=== PATIENT | female | born 1950 | race American Indian/Alaskan Native ===

== ENCOUNTER 2016-09-04 11:46 | Emergency (ER) | payer BC ==
[2016-09-04 12:02] LABS: Basophils % (Auto) 0.4 % (0.0-1.8); Eosinophils % (Auto) 0.4 % (0.0-4.3); Hematocrit 45.7 % (30.3-42.9); Hemoglobin 15.8 gm/dl (10.1-14.3); Mean Corpuscular HGB Conc 35 % (30-34); Mean Corpuscular Hemoglobin 30 pg (28-32); Mean Corpuscular Volume 86 fl (79-97); Platelet Count 235 K/mm3 (140-440); Red Blood Count 5.33 M/mm3 (3.65-5.03); Red Cell Distribution Width 12.4 % (13.2-15.2); White Blood Count 7.3 K/mm3 (4.5-11.0)
[2016-09-04 12:08] LABS: INR 0.96 (0.87-1.13)
--- NOTE | 2016-09-04 12:08 | Cat Scan Report ---
CT HEAD WITHOUT CONTRAST: HISTORY: CVA. No comparison. There is no evidence for hemorrhage, mass, chronic infarct or extra-axial fluid collection. No hydrocephalus. There is a questionable 2 x 4 cm area of diminished attenuation in the right basal ganglia region. This appears to involve the subinsular region as well as the head of the caudate nucleus. The remainder of the brain parenchyma has normal attenuation. The posterior fossa and contents are within normal limits. Moderate fluid or mucosal thickening in the ethmoid and visualized maxillary sinuses is noted. IMPRESSION: No evidence for hemorrhage. Questionable, subtle area of diminished attenuation in the right basal ganglia region. Please correlate with the patient's clinical presentation. These findings were discussed with Dr. Barber in the emergency department at 1201 hrs.
[2016-09-04] MEDS ORDERED: CARDENE DRIP 40 MG/200 ML 200 ML ONE (12:10)
[2016-09-04 12:13] LABS: Anion Gap 19 mmol/L; Blood Urea Nitrogen 12 mg/dL (7-17); Calcium 9.5 mg/dL (8.4-10.2); Carbon Dioxide 25 mmol/L (22-30); Chloride 95.4 mmol/L (98-107); Glucose 285 mg/dL (65-100); Potassium 3.6 mmol/L (3.6-5.0); Sodium 136 mmol/L (137-145)
--- NOTE | 2016-09-04 12:21 | Emergency Department Report ---
ED General Adult HPI - General Stated complaint: POSS CVA Time Seen by Provider: 09/04/16 11:57 Source: patient, family, EMS Mode of arrival: Stretcher Limitations: No Limitations - Related Data Allergies Allergy/AdvReac Type Severity Reaction Status Date / Time No Known Allergies Allergy Verified 09/04/16 11:48 ED Review of Systems ROS: Stated complaint: POSS CVA Other details as noted in HPI ED Past Medical Hx - Past Medical History Previous Medical History?: Yes Hx Hypertension: Yes Hx Diabetes: Yes - Surgical History Past Surgical History?: Yes Additional Surgical History: ectopic - Social History Smoking Status: Never Smoker Substance Use Type: None ED Physical Exam - General Limitations: No Limitations ED Course Vital Signs 09/04/16 12:04 Temperature 97.5 F L Pulse Rate 91 H Blood Pressure 231/95 O2 Sat by Pulse 100 Oximetry ED Medical Decision Making - Lab Data Result diagrams: 09/04/16 11:50 09/04/16 11:50 Critical care attestation.: If time is entered above; I have spent that time in minutes in the direct care of this critically ill patient, excluding procedure time. ED Disposition Condition: Stable
[2016-09-04] MEDS ORDERED: BABY ASPIRIN PO ONE (12:22)
[2016-09-04 12:45] LABS: Alanine Aminotransferase 10 units/L (7-56); Albumin/Globulin Ratio 0.8 %; Alkaline Phosphatase 109 units/L (35-129); Bilirubin,Total 0.5 mg/dL (0.1-1.2); Total Protein 8.8 g/dL (6.3-8.2)
--- NOTE | 2016-09-04 12:48 | XRay Report ---
AP CHEST: HISTORY: Hypertension AP view of the chest demonstrates a normal mediastinal and cardiac contour with clear lungs and normal bony and soft tissue structures. IMPRESSION: Unremarkable AP chest.
[2016-09-04 12:49] LABS: Bilirubin,Direct < 0.2 mg/dL (0-0.2)
--- NOTE | 2016-09-04 12:57 | Emergency Department Report ---
ED Neuro Deficit HPI - General Chief Complaint: Neuro Symptoms/Deficit Stated Complaint: POSS CVA Time Seen by Provider: 09/04/16 11:57 Source: patient, family, EMS Mode of arrival: Stretcher Limitations: No Limitations - History of Present Illness Initial Comments: The patient is brought to this facility as a "code stroke". Paramedics state that her last known well time was 11 PM last night. This is verified with the family. The family states that at 11 AM this morning they found that the patient was unable to get out of bed. They called EMS. The patient herself has no awareness of any weakness numbness facial droop or difficulty speaking. Paramedics did have a positive Bacliff score with a question of left facial droop and left arm drip. The patient's speech was normal on arrival. She did appear to have slight facial asymmetry in the hallway but not obvious full paresis. She presented with a field a curbside exam her drift was not really obvious. Blood pressure of about 250 systolic from EMS. She was sent directly for an immediate CT of her head. The patient herself stated that she did not pass out. She stated that she went to the floor because both her legs were weak. She stated that she had difficulty getting up because of generalized weakness. She denied any left sided weakness. She also denied any numbness at all. She specifically denied any paresthesias or facial change of any sort. She was completely coherent on arrival. She was completely unaware of any sort of neurological deficit and thus no information could be obtained concerning time of onset. I spoke with Dr. Rudolph the radiologist who read her CT immediately. He stated that she may have a possible right basal ganglion stroke that is already appearing as a hypodensity. He stated the finding is subtle and he couldn't confirmed. -: unknown Location: left face, left arm Presenting Symptoms: Present: Weak/Paralyzed One Side History of same: No Place: home Severity: mild Quality: weak (per EMS) Improves With: none Worsens With: none On Anticoagulants: No Context: other (unknown onset) Associated Symptoms: denies other symptoms Treatments Prior to Arrival: none - Related Data Allergies/Adverse Reactions: Allergies Allergy/AdvReac Type Severity Reaction Status Date / Time No Known Allergies Allergy Verified 09/04/16 11:48 ED Review of Systems ROS: Stated complaint: POSS CVA Other details as noted in HPI Constitutional: weakness (generalized weakness). denies: chills, fever Eyes: denies: eye pain, eye discharge, vision change ENT: denies: ear pain, throat pain Respiratory: denies: cough, shortness of breath, wheezing Cardiovascular: denies: chest pain, palpitations Endocrine: no symptoms reported Gastrointestinal: denies: abdominal pain, nausea, diarrhea Genitourinary: denies: urgency, dysuria, discharge Musculoskeletal: denies: back pain, joint swelling, arthralgia Skin: denies: rash, lesions Neurological: denies: headache, weakness, paresthesias Psychiatric: denies: anxiety, depression Hematological/Lymphatic: denies: easy bleeding, easy bruising ED Past Medical Hx - Past Medical History Previous Medical History?: Yes Hx Hypertension: Yes Hx Diabetes: Yes - Surgical History Past Surgical History?: Yes Additional Surgical History: ectopic - Social History Smoking Status: Never Smoker Substance Use Type: None ED Neuro Physical Exam - General Limitations: No Limitations General appearance: alert, in no apparent distress Suspected Stroke: Yes - Head Head exam: Present: atraumatic, normocephalic - Eye Eye exam: Present: normal appearance, PERRL, EOMI. Absent: scleral icterus - ENT ENT exam: Present: normal exam, mucous membranes moist - Neck Neck exam: Present: normal inspection - Respiratory Respiratory exam: Present: normal lung sounds bilaterally. Absent: respiratory distress - Cardiovascular Cardiovascular Exam: Present: regular rate, normal rhythm. Absent: systolic murmur, diastolic murmur, rubs, gallop - GI/Abdominal GI/Abdominal exam: Present: soft, normal bowel sounds. Absent: distended, tenderness, guarding, rebound, rigid, organomegaly, mass - Extremities Exam Extremities exam: Present: normal inspection - Back Exam Back exam: Present: normal inspection - Neurological Exam Neurological exam: Present: alert, oriented X3, CN II-XII intact. Absent: motor sensory deficit - NIHSS Assessment Interval: Baseline 1a. Level of Consciousness: alert 1b. LOC Questions: answers correctly 1c. LOC Commands: performs tasks correctly 2. Best Gaze: normal 3. Visual: no visual loss 4. Facial Palsy: minor paralysis (asymmetry but no definite paresis) 5b. Motor Arm Right: no drift 5a. Motor Arm Left: no drift 6a. Motor Leg Left: no drift 6b. Motor Leg Right: no drift 7. Limb Ataxia: absent 8. Sensory: normal 9. Best Language: no aphasia 10. Dysarthria: normal 11. Extinction/Inattention: no abnormality Total Score: 1 Stroke Severity: Minor Stroke - Psychiatric Psychiatric exam: Present: normal affect, normal mood - Skin Skin exam: Present: warm, dry, intact, normal color. Absent: rash ED Course Vital Signs 09/04/16 09/04/16 09/04/16 12:01 12:04 12:16 Temperature 97.5 F L Pulse Rate 91 H 89 Respiratory 13 Rate Blood Pressure 231/95 231/95 O2 Sat by Pulse 100 100 98 Oximetry 09/04/16 09/04/16 09/04/16 12:30 12:36 12:45 Temperature Pulse Rate 104 H 102 H 107 H Respiratory 20 18 16 Rate Blood Pressure 193/104 193/104 185/85 O2 Sat by Pulse 96 98 94 Oximetry 09/04/16 09/04/16 09/04/16 12:51 13:00 13:03 Temperature Pulse Rate 105 H 108 H 104 H Respiratory 18 21 15 Rate Blood Pressure 185/85 164/87 164/87 O2 Sat by Pulse 97 98 Oximetry 09/04/16 09/04/16 09/04/16 13:15 13:18 13:30 Temperature Pulse Rate 102 H 108 H 98 H Respiratory 14 17 18 Rate Blood Pressure 177/84 164/87 192/90 O2 Sat by Pulse 99 98 98 Oximetry - Reevaluation(s) Reevaluation #1: The initial NIH stroke score was done in the hallway as to not delay CT. When the patient returned from CT a repeat examination was done. This showed the patient to have a slightly more pronounced partial facial paresis, definite left arm drift, mild left leg drift. There was no side denial. There was no other score arrival findings on the NIH stroke score. I could not say definitively that this exam was different from the hallway exam because it was so performed in different settings. The patient had a blood pressure of 230/ 95. Nurse was instructed to start a very gentle titration Cardene drip. However, perhaps within less than a half an hour, I was called back to the room by the nurse. The blood pressure was 185/95 at that time. The patient was found to have a full-blown MCA syndrome. By that time I have received the CT images. I reviewed the CT myself. I would question the existence of a hyperdensity in the left MCA. Both MCH are present with hyper density. However I think the left really looks more prominent. I spoke to the [place] neurologist. The patient's stroke score at this time I believe is approximately 20. I spoke to Dr. Stallworth concerning the patient's above history. He agreed that the patient was not a candidate for TPA. He was kind enough to accept this patient for angiography and possible intervention. We decided to stop the Cardene drip to hopefully allow for increased cerebral perfusion. The patient was informed of the plan for intervention. Helicopter transfer was arranged for. 09/04/16 13:27 - Lab Data Result diagrams: 09/04/16 11:50 09/04/16 11:50 Lab Results 09/04/16 09/04/16 09/04/16 Range/Units 11:50 11:50 11:50 WBC 7.3 (4.5-11.0) K/mm3 RBC 5.33 H (3.65-5.03) M/mm3 Hgb 15.8 H (10.1-14.3) gm/dl Hct 45.7 H (30.3-42.9) % MCV 86 (79-97) fl MCH 30 (28-32) pg MCHC 35 H (30-34) % RDW 12.4 L (13.2-15.2) % Plt Count 235 (140-440) K/mm3 Lymph % (Auto) 18.3 (13.4-35.0) % [facility] % (Auto) 3.9 (0.0-7.3) % Eos % (Auto) 0.4 (0.0-4.3) % Baso % (Auto) 0.4 (0.0-1.8) % Lymph # 1.3 (1.2-5.4) K/mm3 [facility] # 0.3 (0.0-0.8) K/mm3 Eos # 0.0 (0.0-0.4) K/mm3 Baso # 0.0 (0.0-0.1) K/mm3 Seg Neutrophils % 77.0 H (40.0-70.0) % Seg Neutrophils # 5.6 (1.8-7.7) K/mm3 PT 12.7 (12.2-14.9) Sec. INR 0.96 (0.87-1.13) APTT 23.0 L (24.2-36.6) Sec. Thrombin Time (15.1-19.6) Sec. Sodium 136 L (137-145) mmol/L Potassium 3.6 (3.6-5.0) mmol/L Chloride 95.4 L (98-107) mmol/L Carbon Dioxide 25 (22-30) mmol/L Anion Gap 19 mmol/L BUN 12 (7-17) mg/dL Creatinine 0.6 L (0.7-1.2) mg/dL Estimated GFR > 60 ml/min BUN/Creatinine Ratio 20.00 % Glucose 285 H (65-100) mg/dL Calcium 9.5 (8.4-10.2) mg/dL Total Bilirubin (0.1-1.2) mg/dL Direct Bilirubin (0-0.2) mg/dL AST (5-40) units/L ALT (7-56) units/L Alkaline Phosphatase (35-129) units/L Troponin T < 0.010 (0.00-0.029) ng/mL NT-Pro-B Natriuret Pep (0-900) pg/mL Total Protein (6.3-8.2) g/dL Albumin (3.9-5) g/dL Albumin/Globulin Ratio % 09/04/16 09/04/16 Range/Units 11:50 11:50 WBC (4.5-11.0) K/mm3 RBC (3.65-5.03) M/mm3 Hgb (10.1-14.3) gm/dl Hct (30.3-42.9) % MCV (79-97) fl MCH (28-32) pg MCHC (30-34) % RDW (13.2-15.2) % Plt Count (140-440) K/mm3 Lymph % (Auto) (13.4-35.0) % [facility] % (Auto) (0.0-7.3) % Eos % (Auto) (0.0-4.3) % Baso % (Auto) (0.0-1.8) % Lymph # (1.2-5.4) K/mm3 [facility] # (0.0-0.8) K/mm3 Eos # (0.0-0.4) K/mm3 Baso # (0.0-0.1) K/mm3 Seg Neutrophils % (40.0-70.0) % Seg Neutrophils # (1.8-7.7) K/mm3 PT (12.2-14.9) Sec. INR (0.87-1.13) APTT (24.2-36.6) Sec. Thrombin Time 17.1 (15.1-19.6) Sec. Sodium (137-145) mmol/L Potassium (3.6-5.0) mmol/L Chloride (98-107) mmol/L Carbon Dioxide (22-30) mmol/L Anion Gap mmol/L BUN (7-17) mg/dL Creatinine (0.7-1.2) mg/dL Estimated GFR ml/min BUN/Creatinine Ratio % Glucose (65-100) mg/dL Calcium (8.4-10.2) mg/dL Total Bilirubin 0.5 (0.1-1.2) mg/dL Direct Bilirubin < 0.2 (0-0.2) mg/dL AST 14 (5-40) units/L ALT 10 (7-56) units/L Alkaline Phosphatase 109 (35-129) units/L Troponin T (0.00-0.029) ng/mL NT-Pro-B Natriuret Pep 65.98 (0-900) pg/mL Total Protein 8.8 H (6.3-8.2) g/dL Albumin 4.0 (3.9-5) g/dL Albumin/Globulin Ratio 0.8 % - EKG Data -: EKG Interpreted by Ia EKG shows normal: sinus rhythm, axis, intervals, QRS complexes, ST-T waves Rate: normal Interpretation: no acute changes - Radiology Data Radiology results: report reviewed Critical Care Time: Yes Critical care time in (mins) excluding proc time.: 90 Critical care attestation.: If time is entered above; I have spent that time in minutes in the direct care of this critically ill patient, excluding procedure time. ED Disposition Clinical Impression: Acute CVA (cerebrovascular accident), Uncontrolled hypertension Type 2 diabetes mellitus Qualifiers: Diabetes mellitus complication status: with other specified complication Diabetes mellitus care home insulin use: without bed bug exterminator use Qualified Code(s) : E11.69 - Type 2 diabetes mellitus with other specified complication Disposition: DC/TX ANOTHER TYPE HEALTHCARE Is pt being admited?: No Does the pt Need Aspirin: No Condition: Stable Instructions: Hypertension (ED), Diabetes Mellitus Type 2 in Adults (ED) Referrals: PRIMARY CARE, [Primary Care Provider] - 3-5 Days
[2016-09-04] MEDS ORDERED: CARDENE DRIP 40 MG/200 ML 200 ML IV SCH (13:00)
[2016-09-04 13:41] VITALS: BP 192/90
== END 2016-09-04 14:04 | disposition other institution (70) ==
LOC: ED 11:46
DX: I63.9 Cerebral infarction, unspecified (principal); I10 Essential (primary) hypertension; E11.69 Type 2 diabetes mellitus with other specified complication
CPT/HCPCS: 36415; 70450; 71010; 80048; 80074; 83880; 84484; 85025; 85610; 85670; 85730; 93005; 93010; 96365; 99292